=== PATIENT | female | born 2000 | race Hispanic/Latino ===

== ENCOUNTER 2021-09-17 10:19 | Emergency (ER) | payer OTHER, SELFPAY ==
[2021-09-17 10:58] LABS: Absolute Lymphocytes (CBC) 0.8 K/uL (0.7-4.9); Basophils % 0.4 % (0-1.3); Hematocrit 38.5 % (36.0-45.0); Lymphocytes % 3.5 % (15.3-44.8); MPV 7.9 fL (7.6-11.3); RBC Red Blood Cell Count 4.48 M/uL (3.86-4.86)
[2021-09-17 11:01] LABS: Protime INR 1.41
[2021-09-17 11:09] LABS: ALT/SGPT 33 U/L (12-78); AST/SGOT 20 U/L (15-37); Albumin 3.5 g/dL (3.4-5.0); Alkaline Phosphatase 91 U/L (45-117); BUN Blood Urea Nitrogen 10 mg/dL (7-18); Bicarbonate 23 mmol/L (21-32); Bilirubin Direct 0.2 mg/dL (0-0.2); Bilirubin Total 0.4 mg/dL (0.2-1.0); Creatine Phosphokinase 51 U/L (26-192); Glucose Level 179 mg/dL (74-106); Lipase 68 U/L (73-393); Protein, Total 7.8 g/dL (6.4-8.2); Sodium Level 135 mmol/L (136-145); Troponin (Emerg Dept Use Only) < 0.02 ng/mL (0.0-0.045)
[2021-09-17 11:10] LABS: CKMB Creatine Kinase MB < 1.0 ng/mL (1.0-3.6)
[2021-09-17 11:34] LABS: Urine Blood 3+ (Negative); Urine Glucose Trace (Negative); Urine Protein 3+ (Negative); Urine Specific Gravity 1.025 (1.005-1.030); Urine pH 5.5 (5.0-7.0)
[2021-09-17 12:01] LABS: Urine Bacteria 20-50 /HPF (<20); Urine RBC <5 /HPF (NONE SEEN)
[2021-09-17 12:02] LABS: Urine Mucus 2+ /HPF (NONE SEEN)
--- NOTE | 2021-09-17 12:03 | RAD REPORT ---
EXAM DESCRIPTION: CTAbdomen Pelvis W Contrast - 09/17/2021 11:54 am CLINICAL HISTORY: ABD PAIN COMPARISON: No comparisons TECHNIQUE: CT of the abdomen and pelvis was performed. All CT scans are performed using dose optimization technique as appropriate and may include automated exposure control or mA/KV adjustment according to patient size. FINDINGS: Lower chest: No acute abnormality. Liver: No acute abnormality or suspicious lesions. Biliary: No biliary ductal dilatation. Stomach: No significant focal abnormality. Duodenum: No significant focal abnormality. Pancreas: No significant abnormality. Spleen: No significant abnormality. Adrenal: No suspicious lesions. Kidney/ureter: Patchy enhancement of the left kidney. No hydronephrosis. No fluid collections identif ied. Unremarkable appearance of the right kidney. Retroperitoneum: No retroperitoneal adenopathy. Vascular: No aneurysm. Bowel: No significant focal abnormality. Peritoneum: No ascites or free air. Bladder: Circumferential bladder wall thickening. Reproductive: No adnexal masses. Bones: No acute fracture. Other: n/a IMPRESSION: Patchy enhancement of the left kidney concerning for pyelonephritis. No abscess or hydro nephrosis identified.
[2021-09-17 12:13] LABS: Urine Specific Gravity/Preg 1.025 (1.005-1.030)
[2021-09-17] MEDS ORDERED: NA CHLORIDE 0.9% 1,000 ML ONE (12:16)
--- NOTE | 2021-09-17 12:26 | EDPHYS ---
Physician Documentation [facility] Name: Yecenia Sheldon Age: 21 yrs Sex: Female : 2000 Arrival Date: 09/17/2021 Time: 10:23 Bed 23 Private MD: ED Physician Elis Garza HPI: 09/17 10:42 This 21 yrs old Female presents to ER via Wheelchair with complaints of kb General Weakness. 10:41 Pt reports weakness, fever, headache, LUQ pain for 3 days. . kb 10:42 The patient presents with generalized weakness. Onset: The symptoms/episode kb began/occurred 3 day(s) ago. Context: occurred at home, just prior to the episode the patient experienced no apparent symptoms. Modifying factors: The symptoms are alleviated by nothing, the symptoms are aggravated by nothing. Associated signs and symptoms: Pertinent positives: abdominal pain, headache, nausea. Severity of symptoms: At their worst the symptoms were moderate in the emergency department the symptoms are unchanged. Patient's baseline: Neuro: alert and fully oriented, Motor: no deficits, Ambulation: walks without assistance, Speech: normal. The patient has not experienced similar symptoms in the past. The patient has been recently seen by a physician: yesterday, with similar presenting complaints, lab tests were done, [facility] in [place]. ILLUSIONIST: 10:46 LMP 09/16/2021 ap3 Historical: - Allergies: 10:25 No Known Allergies; aa5 - Home Meds: 10:25 None [Active]; aa5 - PMHx: 10:25 None; aa5 - PSHx: 10:25 None; aa5 - Immunization history:: Adult Immunizations unknown. - Social history:: Smoking status: Patient denies any tobacco usage or history of. ROS: 10:42 ENT: Negative for injury, pain, and discharge. kb 10:42 Constitutional: Positive for fever. 10:42 Abdomen/GI: Positive for abdominal pain, nausea, Negative for vomiting, diarrhea, constipation. 10:42 Neuro: Positive for weakness. 10:42 All other systems are negative. Exam: 10:42 Head/Face: Normocephalic, atraumatic. ENT: Moist Mucous membranes Cardiovascular: kb Regular rate and rhythm with a normal S1 and S2. No gallops, murmurs, or rubs. No pulse deficits. Respiratory: Respirations even and unlabored. No increased work of breathing, no retractions or nasal flaring. Skin: Warm, dry with normal turgor. Normal color. MS/ Extremity: Pulses equal, no cyanosis. Neurovascular intact. Full, normal range of motion. Neuro: Awake and alert, GCS 15, oriented to person, place, time, and situation. Moves all extremities. Normal gait. Psych: Awake, alert, with orientation to person, place and time. Behavior, mood, and affect are within normal limits. 10:42 Constitutional: The patient appears alert, awake, uncomfortable. 10:42 Abdomen/GI: Inspection: abdomen appears normal, Bowel sounds: normal, in all quadrants, Palpation: soft, in all quadrants, mild abdominal tenderness, in the left upper quadrant. 11:03 ECG was reviewed by the Attending Physician. Vital Signs: 10:25 BP 128 / 70; Pulse 128; Resp 16 S; Temp 97.7(TE); Pulse Ox 97% on R/A; Weight 55.34 kg aa5 (R); Height 5 ft. 3 in. (160.02 cm) (R); 11:30 BP 110 / 76; Pulse 102; Resp 19; Pulse Ox 100% on R/A; ap3 11:35 BP 115 / 75 Supine; Pulse 99; Pulse Ox 100% on R/A; ap3 11:36 BP 107 / 75 Sitting; Pulse 105; Pulse Ox 100% on R/A; ap3 11:36 BP 109 / 71 Standing; Pulse 109; Pulse Ox 100% on R/A; ap3 10:25 Body Mass Index 21.61 (55.34 kg, 160.02 cm) aa5 MDM: 10:29 Patient medically screened. kb 10:44 Differential diagnosis: generalized weakness, hypovolemia. Data reviewed: vital signs, kb nurses notes. Data interpreted: Pulse oximetry: on room air is 97 %. Interpretation: normal. 12:25 Counseling: I had a detailed discussion with the patient and/or guardian regarding: the kb historical points, exam findings, and any diagnostic results supporting the discharge/admit diagnosis, lab results, radiology results, the need for outpatient follow up, a family practitioner, to return to the emergency department if symptoms worsen or persist or if there are any questions or concerns that arise at home. 09/17 10:29 Order name: Basic Metabolic Panel kb 09/17 10:29 Order name: CBC with Diff kb 09/17 10:29 Order name: CPK; Complete Time: 11:12 kb 09/17 10:29 Order name: Ckmb; Complete Time: 11:12 kb 09/17 10:29 Order name: Hepatic Function; Complete Time: 11:12 kb 09/17 10:29 Order name: Lipase; Complete Time: 11:12 kb 09/17 10:29 Order name: Magnesium; Complete Time: 11:12 kb 09/17 10:29 Order name: Protime (+inr); Complete Time: 11:08 kb 09/17 10:29 Order name: Ptt, Activated; Complete Time: 11:08 kb 09/17 10:29 Order name: Troponin (emerg Dept Use Only); Complete Time: 11:12 kb 09/17 10:29 Order name: Basic Metabolic Panel; Complete Time: 11:12 EDMS 09/17 10:42 Order name: Swisher Screen Profile; Complete Time: 11:37 kb 09/17 11:13 Order name: Manual Differential EDMS 09/17 10:29 Order name: EKG; Complete Time: 10:30 kb 09/17 10:29 Order name: Cardiac monitoring; Complete Time: 10:44 kb 09/17 10:29 Order name: EKG - Nurse/Tech; Complete Time: 10:59 kb 09/17 10:29 Order name: IV Saline Lock; Complete Time: 10:44 kb 09/17 10:29 Order name: Labs collected and sent; Complete Time: 10:44 kb 09/17 10:29 Order name: NPO; Complete Time: 10:32 kb 09/17 10:29 Order name: O2 Per Protocol; Complete Time: 10:32 kb 09/17 11:24 Order name: SARS-COV-2 RT PCR; Complete Time: 12:25 EDMS 09/17 11:33 Order name: Urine Dipstick-Ancillary; Complete Time: 11:37 EDMS 09/17 11:38 Order name: Urine Microscopic Only; Complete Time: 12:03 kb 09/17 11:38 Order name: CT Abd/Pelvis - IV Contrast Only; Complete Time: 12:04 kb 09/17 11:45 Order name: Urine --Ancillary (enter results); Complete Time: 12:14 bd 09/17 12:02 Order name: Urine Culture EDMS 09/17 10:29 Order name: O2 Sat Monitoring; Complete Time: 10:32 kb 09/17 10:29 Order name: Urine Dipstick-Ancillary (obtain specimen); Complete Time: 11:22 kb 09/17 10:29 Order name: Orthostatics; Complete Time: 11:35 kb 09/17 12:27 Order name: PO challenge; Complete Time: 12:37 kb EC:03 Rate is 109 beats/min. Rhythm is regular. QRS Surrency is Normal. ME interval is normal at kb 150 msec. QRS interval is normal at 94 msec. QT interval is normal at 318 msec. Administered Medications: 11:58 Drug: NS 0.9% 1000 ml Route: IV; Rate: 1000 ml; Site: right antecubital; ap3 12:37 Follow up: IV Status: Completed infusion ap3 12:13 Drug: Rocephin (cefTRIAXone) 1 grams Route: IV; Rate: calculated rate; Site: right ap3 antecubital; 12:37 Follow up: IV Status: Completed infusion ap3 12:13 Drug: Potassium Chloride 40 mEq Route: PO; ap3 12:37 Follow up: Response: No adverse reaction ap3 Disposition Summary: 09/17/21 12:25 Discharge Ordered Location: Home kb Condition: Stable kb Diagnosis - Hypokalemia kb - Tubulo-interstitial nephritis, not specified as acute or chronic kb Followup: kb - With: Emergency Department - When: As needed - Reason: Worsening of condition Followup: kb - With: Private Physician - When: 2 - 3 days - Reason: Recheck today's complaints, Continuance of care, Re-evaluation by your physician Discharge Instructions: - Discharge Summary Sheet kb - Pyelonephritis, Adult, [id number] kb - Hypokalemia kb Forms: - Family Work Release kb - Medication Reconciliation Form kb - Thank You Letter kb - Antibiotic Education kb - Prescription Opioid Use kb Prescriptions: - cefpodoxime 100 mg Oral Tablet - take 1 tablet by ORAL route every 12 hours for 10 days take with food; 20 kb tablet; Refills: 0, Product Selection Permitted - Zofran 4 mg Oral Tablet - take 1 tablet by ORAL route every 6 hours As needed; 20 tablet; Refills: 0, kb Product Selection Permitted Addendum: 09/18/2021 14:19 Co-signature as Attending Physician, Elis Garza MD I agree with the assessment and s p3 plan of care. Signatures: Dispatcher [employer] Tomeka Melgoza, ARCHITECTURAL SALES CONSULTANT-C ARCHITECTURAL SALES CONSULTANT-Oksana Molina, RN RN aa5 Vonnie Sánchez RN RN ap3 Elis Garza MD MD sp3 Corrections: (The following items were deleted from the chart) 09/17 11:24 10:37 CORONAVIRUS+MR.LAB.BRZ ordered. CHASTITY HAYWOOD
--- NOTE | 2021-09-17 12:26 | ER ---
Nurse's Notes [facility] Name: Yecenia Sheldon Age: 21 yrs Sex: Female : 2000 Arrival Date: 09/17/2021 Time: 10:23 Bed 23 [facility] MD: Diagnosis: Hypokalemia;Tubulo-interstitial nephritis, not specified as acute or chronic Presentation: 09/17 10:25 Chief complaint: Patient states: generalized weakness x 3 days ago. Pt also reports aa5 fever, nausea, and abd pain. Denies vomiting/diarrhea. Denies cough/congestion. Coronavirus screen: fatigue, fever, nausea. Ebola Screen: No symptoms or risks identified at this time. Initial Sepsis Screen: Does the patient meet any 2 criteria? HR > 90 bpm. Does the patient have a suspected source of infection? Yes:. Risk Assessment: Do you want to hurt yourself or someone else? Patient reports no desire to harm self or others. Onset of symptoms was August 2021. 10:25 Acuity: ODILON 3 aa5 10:25 Method Of Arrival: Wheelchair aa5 HEAD GROWER: 10:46 LMP 09/16/2021 ap3 Historical: - Allergies: 10:25 No Known Allergies; aa5 - Home Meds: 10:25 None [Active]; aa5 - PMHx: 10:25 None; aa5 - PSHx: 10:25 None; aa5 - Immunization history:: Adult Immunizations unknown. - Social history:: Smoking status: Patient denies any tobacco usage or history of. Screenin:45 Abuse screen: Denies threats or abuse. Nutritional screening: No deficits noted. ap3 Tuberculosis screening: No symptoms or risk factors identified. Fall Risk No fall in past 12 months (0 pts). IV access (20 points). Ambulatory Aid- None/Bed Rest/Nurse Assist (0 pts). Gait- Weak (10 pts.). Mental Status- Oriented to own ability (0 pts). Total Arreola Fall Scale indicates Low Risk Score (25-44 pts). Fall prevention measures have been instituted. Side Rails Up X 2 Placed close to Nursing Station Frequent Obs/Assesments occuring Family Present and informed to notify staff if they need to leave bedside As available Patient and Family Educated on Fall Prevention Program and strategies. Assessment: 10:44 General: Appears uncomfortable, Behavior is calm, Reports chills for 2-3 days, fever ap3 for 2-3 days, feeling ill for 2-3 days, fatigue for 2-3 days. Pain: Complains of pain in left upper quadrant. Neuro: Level of Consciousness is awake, alert, obeys commands, Oriented to person, place, time, situation, Appropriate for age Moves all extremities. Cardiovascular: Patient's skin is warm and dry. Respiratory: Airway is patent Respiratory effort is even, unlabored, Respiratory pattern is regular, symmetrical. GI: Reports upper abdominal pain, nausea. : No signs and/or symptoms were reported regarding the genitourinary system. Vital Signs: 10:25 BP 128 / 70; Pulse 128; Resp 16 S; Temp 97.7(TE); Pulse Ox 97% on R/A; Weight 55.34 kg aa5 (R); Height 5 ft. 3 in. (160.02 cm) (R); 11:30 BP 110 / 76; Pulse 102; Resp 19; Pulse Ox 100% on R/A; ap3 11:35 BP 115 / 75 Supine; Pulse 99; Pulse Ox 100% on R/A; ap3 11:36 BP 107 / 75 Sitting; Pulse 105; Pulse Ox 100% on R/A; ap3 11:36 BP 109 / 71 Standing; Pulse 109; Pulse Ox 100% on R/A; ap3 10:25 Body Mass Index 21.61 (55.34 kg, 160.02 cm) aa5 ED Course: 10:23 Patient arrived in ED. mr 10:23 [facility]C [facility] kb 10:23 Elis Garza MD is Attending Physician. kb 10:25 Arm band placed on. aa5 10:28 Triage completed. aa5 10:31 Vonnie Sánchez RN is Primary Nurse. ap3 10:35 Inserted saline lock: 20 gauge in right antecubital area, using aseptic technique. ap3 Blood collected. 10:46 Patient has correct armband on for positive identification. Bed in low position. Call ap3 light in reach. Side rails up X2. Adult w/ patient. nurse monitoring on. Pulse ox on. NIBP on. Door closed. Noise minimized. 11:05 EKG done, by ED staff, reviewed by Tomeka TAYLOR COVID swab sent to lab. ap3 11:12 Notified Nurse Practitioner and/or Physician [employer] of a critical lab result(s), WBC ll1 21.8. 11:54 CT Abd/Pelvis - IV Contrast Only In Process Unspecified. EDMS 12:37 No provider procedures requiring assistance completed. IV discontinued, intact, ap3 bleeding controlled, No redness/swelling at site. Pressure dressing applied. Administered Medications: 11:58 Drug: NS 0.9% 1000 ml Route: IV; Rate: 1000 ml; Site: right antecubital; ap3 12:37 Follow up: IV Status: Completed infusion ap3 12:13 Drug: Rocephin (cefTRIAXone) 1 grams Route: IV; Rate: calculated rate; Site: right ap3 antecubital; 12:37 Follow up: IV Status: Completed infusion ap3 12:13 Drug: Potassium Chloride 40 mEq Route: PO; ap3 12:37 Follow up: Response: No adverse reaction ap3 Outcome: 12:25 Discharge ordered by . kb 12:38 Discharged to home ambulatory, with family. ap3 12:38 Condition: good 12:38 Discharge instructions given to patient, family, Instructed on discharge instructions, follow up and referral plans. medication usage, Demonstrated understanding of instructions, follow-up care, medications, Prescriptions given X 1. 12:38 Patient left the ED. ap3 Addendum: 09/20/2021 12:57 Addendum: Culture Results: Positive urine culture. No further action required. Bacteria s s sensitive to prescribed antibiotic. Signatures: Dispatcher [employer] EDOH Tomeka Love FNP-C FNP-Chandrakant Alice McdonaldOksana, RN RN aa5 Hannah Perez RN RN Vonnie Rivas RN RN ap3 Gonzalo Rossi RN RN ll1 Corrections: (The following items were deleted from the chart) 09/17 10:31 10:25 Chief complaint: Patient states: generalized weakness x 3 days ago. Pt also aa5 reports fever and nausea. Denies vomiting/diarrhea. Denies cough/congestion. aa5
[2021-09-17] MEDS ORDERED: CEFTRIAXONE 1000 MG/VIAL ONE (12:34)
[2021-09-17] MEDS ORDERED: NA CHLORIDE 0.9% 100 ML ONE (12:34)
[2021-09-17] MEDS ORDERED: POTASSIUM CL SA 10 MEQ TAB PO ONE (12:34)
[2021-09-17 13:03] VITALS: TEMP 97.7
[2021-09-17 13:08] VITALS: O2SAT 100
[2021-09-17 13:16] VITALS: BP 109/71
[2021-09-17 13:17] LABS: Blood Morphology Comment NOT SEEN (NOT SEEN); Platelet Estimate ADEQ
--- NOTE | 2021-09-18 16:46 | EKG ---
Test Date: 2021-09-17 Test Time: 10:58:08 Orthotics Prosthetics Technician: ALP MEASUREMENT RESULTS: Intervals: Rate: 104 AK: 150 QRSD: 90 QT: 322 QTc: 423 [place]: P: 74 AK: 150 QRS: 89 T: 78 INTERPRETIVE STATEMENTS: Sinus tachycardia Otherwise normal ECG No previous ECG available for comparison Electronically Signed On 09-18-21 16:41:26 CDT by Nash Burks
--- NOTE | 2021-09-18 16:46 | EKG ---
Test Date: 2021-09-17 Test Time: 10:58:52 Sheep Sticker: ALP MEASUREMENT RESULTS: Intervals: Rate: 109 GA: 150 QRSD: 94 QT: 318 QTc: 428 [place]: P: 75 GA: 150 QRS: 89 T: 73 INTERPRETIVE STATEMENTS: Sinus tachycardia Nonspecific T wave abnormality Abnormal ECG Compared to ECG 09/17/2021 10:58:08 T-wave abnormality now present Electronically Signed On 09-18-21 16:41:26 CDT by Nash Burks
== END 2021-09-17 12:38 | disposition home or self-care (01) ==
LOC: ER 10:19
DX: E87.6 Hypokalemia (principal); N12 Tubulo-interstitial nephritis, not specified as acute or chronic; Z20.822 Contact with and (suspected) exposure to COVID-19
CPT/HCPCS: 93005 ×2; 87088; 85025; 87086; 80048; 36415; 83735; 82550; 86308; 81025; 85610; 80076; 85730; 87077; 87186; 84484; 82553; 83690; 74177; 99285; U0003; Q9967; J7030; 81003; 81015